=== PATIENT | female | born 1995 | race Caucasian/White ===

== ENCOUNTER → 2023-08-01 08:07 | Outpatient (CLI) | payer OTHER, SELFPAY ==
--- NOTE | ~2023-08-01 | US_ITS ---
Pelvic ultrasound. Clinical History: First trimester , Saturdays and viability, amenorrhea Technique: Realtime transabdominal and transvaginal scanning of the pelvis was performed. Color flow Doppler and Doppler spectral analysis were performed. Findings: The uterus is anteverted, and contains an intrauterine gestation. [place]-rump length of 1.5 cm corresponds to an estimated gestational age of 7 weeks 6 days. heart rate is 155 bpm.. The right ovary measures 2.9 x 3.1 x 2.3 cm. No significant right ovarian or adnexal mass is seen. The left ovary is not visualized. No significant left ovarian or adnexal mass is seen. There is no evidence of free fluid in the cul de sac. Impression: Live intrauterine gestation with estimated gestational age of 7 weeks 6 days. heart rate is 155 bpm. Sonographic ALTON is 03/13/2024 Reviewed, dictated and finalized at [facility]. ER [employer] Impression: Live intrauterine gestation with estimated gestational age of 7 weeks 6 days. F etal heart rate is 155 bpm. Sonographic AL[facility] is 03/13/2024
== END ==
PROVIDERS: PCP Family Medicine; Visit Provider Student in an Organized Health Care Education/Training Program
DX: Z34.91 Encounter for supervision of normal pregnancy, unspecified, first trimester (principal); Z3A.01 Less than 8 weeks gestation of pregnancy
CPT/HCPCS: 76801

== ENCOUNTER 2024-02-28 09:15 | Inpatient (IN) | payer OTHER, SELFPAY ==
[2024-02-28] VITALS (23 sets, daily range): BP systolic 96–141; BP diastolic 53–77; PULSE 89–113; RESP 16–18; TEMP 36.4–37.1; O2SAT 97; BMI 27.3
[2024-02-28 10:11] LABS: Basophils Percent Auto 0.3 % (0.2-1.2); Eosinophils Percent Auto 0.2 % (0-4.4); Hematocrit 35.2 % (37.0-47.0); Hemoglobin 11.6 g/dL (12.0-15.0); Immature Granulocyte Absolute 0.08 K/mm3 (0.00-0.031); Immature Granulocyte Percent A 0.6 % (0-0.5); Lymphocytes Percent Auto 12.6 % (18.3-44.2); Mean Corpuscular Hemoglobin 28.9 pg (26-34); Mean Corpuscular Volume 87.8 fl (80-100); Mean Platelet Volume 10.8 fl (7.4-10.4); Monocytes Absolute Auto 0.7 K/mm3 (0.1-0.6); Monocytes Percent Auto 5.6 % (2.6-8.5); Neutrophils Absolute Auto 10.2 K/mm3 (1.3-6.7); Neutrophils Percent Auto 80.7 % (45.5-73.1); Platelet Count Result 294 k/mm3 (150-375); Red Blood Count 4.01 M/mm3 (4.2-5.4); Red Cell Distribution Width 13.5 % (11.5-14.5); White Blood Count 12.7 K/mm3 (4.5-10.0)
--- NOTE | 2024-02-28 10:15 | LDADM ---
This patient, Cherrie Yun, was admitted to Labor/Delivery/Recovery 106 on 02/28/24 at 09:15. Plans for labor, pain management and were discussed with patient. Patient/family oriented to hospital policies and general routines including ID bracelet, bed and alarms, visiting hours, pain management, procedures, bathroom and other care routines, personal items, smoking policy, room service/diet and guest tray routines, infant security routines, and visiting hours. Patient/Family are encouraged to report perceived risks to care and to ask questions if they do not understand what they are told or what they should do. See OBIX for further documentation.
[2024-02-28 10:41] LABS: OBXCEM ROM Plus Positive
--- NOTE | 2024-02-28 11:10 | PM.IMHP ---
H&P: HPI History of Present Illness Date/Time: 02/28/24 11:10 Chief Complaint: Leaking Narrative: 28 y/o G1 at 38 weeks presented with c/o LOF clear at 0700. Cervix forebag, confirmed ROM plus. PNC uncomplicated. GBS neg. Review of Systems Review of Systems: All systems reviewed & are unremarkable except as noted in HPI and below Constitutional: Constitutional: Reports no additional constitutional complaints and Denies headache(s) Eyes: Eyes: Denies spots in vision ENT: Reports system reviewed and no additional complaints, except as documented and Denies headache(s) Cardiovascular: Cardiovascular: Denies chest pain and Denies dyspnea Respiratory: Respiratory: Denies dyspnea Gastrointestinal: Gastrointestinal: Reports no additional gastrointestinal complaints Genitourinary: Genitourinary: Reports amenorrhea Musculoskeletal: Musculoskeletal: Reports no additional musculoskeletal complaints Integumentary/Breasts: Skin/Breast: Denies breast mass and Denies rash Neurologic: Denies headache(s) Psychiatric: Psychiatric: Reports no additional psychiatric complaints [facility] Past Medical History Medical History Suppression of menses Surgical History Surgical History H/O knee surgery Family History Family History Grandparent Diabetes mellitus Mother Hypertension Diabetes mellitus Social History Social History Smoking status: Never smoker Alcohol intake: current Alcohol use details: RARELY Substance use: never Substance use type: does not use Do You Feel Safe in your Home?: Yes Lack of Transportation: No Lack of Food: Never True Current Housing: I Have Housing Concerned About Future Housing: No Difficulty Paying Gas/Electric Bills: No Difficulty Paying for Meds: No Currently Unemployed: No Education: Master's Degree or Higher Difficulty w/ Childcare or Family Care: No Gender identity (if verbalized by the patient): Female Spiritual care concerns: No Agree to blood products: Yes Meds Home Medications and Allergies Home Medications Medication Instructions Recorded Confirmed Type vits no.126-ferrous fum 1 tablet PO DAILY 07/28/23 02/23/24 History 28 mg iron-folic acid 800 mcg tablet (Classic ) Allergies Allergy/AdvReac Type Severity Reaction Status Date / Time No Known Allergies Allergy Verified 02/28/24 10:11 Vital Signs Vital Signs - 24 hr 02/28/24 09:36 02/28/24 09:45 02/28/24 10:00 Temperature 98.7 F Pulse Rate 96 108 H 100 Blood Pressure 141/74 H 114/72 120/67 Oxygen Delivery 02/28/24 10:13 Temperature Pulse Rate Blood Pressure Oxygen Delivery Room Air Exam Const: General: no acute distress Eyes: General: appearance normal, both eyes and all related structures Resp: Effort & Inspection: normal respiratory effort Cardio: Rate: regular rate GI: Other: Gravid no fundal tenderness no right upper quadrant pain Skin: General skin exam: no rashes or lesions noted Neuro: Cognition (Neuro): normal cognition Extrem: General: normal to inspection Psych: Mental Status: mental status grossly normal H&P: Results Labs Labs: Short CBC 02/28/24 Range/Units 10:05 WBC 12.7 H (4.5-10.0) K/mm3 Hgb 11.6 L (12.0-15.0) g/dL Hct 35.2 L (37.0-47.0) % Plt Count 294 (150-375) k/mm3 Assessment and Plan Assessment and plan (1) Spontaneous rupture of membranes: Status: Acute Assessment and Plan: Admit Labor Continue expectant management.
[2024-02-28 11:13] LABS: HIV 1/2 Ab P24 Ag Result Negative (Negative)
--- NOTE | 2024-02-28 11:21 | PM.OBPNVD ---
OB - PN: Subj Subjective Date/time seen: 02/28/24 11:21 Interval history: cat 1, forebag, AROM clear, /-2. OB - PN: Obj Data Labs 02/28/24 10:05 Labs: Laboratory Results - last 24 hr 02/28/24 02/28/24 09:30 10:05 WBC 12.7 H RBC 4.01 L Hgb 11.6 L Hct 35.2 L MCV 87.8 MCH 28.9 MCHC 33.0 RDW 13.5 Plt Count 294 MPV 10.8 H Immature Gran % (Auto) 0.6 H Neut % (Auto) 80.7 H Lymph % (Auto) 12.6 L [place] % (Auto) 5.6 Eos % (Auto) 0.2 Baso % (Auto) 0.3 Lymph # (Auto) 1.60 [place] # (Auto) 0.7 H Eos # (Auto) 0.0 Baso # (Auto) 0.0 Abs Immat Gran (auto) 0.08 H Absolute Neuts (auto) 10.2 H Absolute Nucleated RBC 0.000 Nucleated RBC % 0.0 Membranes Rupture Rom plus positive HIV 1&2 Ab/P24 Ag 4thGn Negative Blood Type O Positive Antibody Screen Negative OB - PN A/P Time Spent With Patient Time: Total time spent is greater than 50% in coordination of care (as documented) at patient's floor/unit and/or counseling patient:
[2024-02-28 11:47] LABS: Rapid Plasma Reagin Non-Reactive (NonReactive)
[2024-02-28] MEDS: fentaNYL CITRATE INJ (*CRX) 100 MCG/2 ML VIAL IV PUSH (13:44)
--- NOTE | 2024-02-28 14:02 | PM.OBPRVD ---
OB - Vaginal Delivery Note Procedure Delivery date: 02/28/24 Induction method: None Delivery monitor: External FHT Route of delivery: Episiotomy description: None Laceration Description: Periurethral and Perineal - 2nd Degree Delivery repair: vicryl (3.0 vicryl) Specimen: No Quantitative Blood Loss (ml): 200 Anesthesia type: Local Disposition: Floor Complications: No immediate complications Narrative: She was admitted after confirmation of SROM and labor. She did have a forebag which was ruptured. She progressed rapidly to active labor and complete. She delivered a male . Nose and mouth suctioned at perineum. The infant was delivered atraumaticly and vigorously crying and placed on maternal abdomen. Delayed cord clamping for 45 seconds. Pitocin started. Placenta delivered spontaneously and intact. She sustained a periurethral laceration. Mc[place] placed to better assess laceration area. Hemostasis was obtained with pressure at area, no suture needed at site. She sustained a second degree laceration repaired with 3.0 vicryl. Baby Date of : 02/28/24 Time of : 13:18 Gestational Age by Date: 38 Infant gender: Male presentation: vertex position: Right Occiput Anterior Placenta delivery description: Spontaneous Cord Vessel Description: 3 Vessels and Delayed Cord Clamping score one minute: 9 score five minutes: 9
[2024-02-28] MEDS: ACETAMINOPHEN 325 MG TABLET 650 MG PO (15:35)
[2024-02-28] MEDS: WITCH HAZEL 40 PADS 1 PAD TOPICAL (15:35)
[2024-02-28] MEDS: BENZOCAINE 20% AER SPR (*SP) 56 GM CAN 1 SPRAY TOPICAL (15:35)
--- NOTE | 2024-02-28 18:24 | OBPPTRN ---
1653-Patient transferred to post room #283 via wheelchair. Support person present. Oriented to unit, room, information board, rooming in, admission packet and security measures. Patient verbalizes understanding.
[2024-02-28] MEDS: IBUPROFEN 600 MG TABLET PO (20:07)
[2024-02-29] MEDS: IBUPROFEN 600 MG TABLET PO ×2 (03:18→15:45)
[2024-02-29 03:30] VITALS: BP 98/62; PULSE 75; RESP 18; TEMP 36.6
[2024-02-29 04:21] LABS: Hematocrit 30.5 % (37.0-47.0); Hemoglobin 9.6 g/dL (12.0-15.0)
--- NOTE | 2024-02-29 06:42 | P.PNOB_ITS ---
OB - PN: Subj Subjective Date/time seen: 02/29/24 06:42 Interval history: cat 1, forebag, AROM clear, /-2. Patient comments: pain well controlled, tolerating diet and other (Decreasing lochia.) baby status: doing well and nursing well OB - PN: Obj Data Labs 02/29/24 03:24 Labs: Laboratory Results - last 24 hr 02/28/24 02/28/24 02/29/24 09:30 10:05 03:24 WBC 12.7 H RBC 4.01 L Hgb 11.6 L 9.6 L Hct 35.2 L 30.5 L MCV 87.8 MCH 28.9 MCHC 33.0 RDW 13.5 Plt Count 294 MPV 10.8 H Immature Gran % (Auto) 0.6 H Neut % (Auto) 80.7 H Lymph % (Auto) 12.6 L [place] % (Auto) 5.6 Eos % (Auto) 0.2 Baso % (Auto) 0.3 Lymph # (Auto) 1.60 [place] # (Auto) 0.7 H Eos # (Auto) 0.0 Baso # (Auto) 0.0 Abs Immat Gran (auto) 0.08 H Absolute Neuts (auto) 10.2 H Absolute Nucleated RBC 0.000 Nucleated RBC % 0.0 Membranes Rupture Rom plus positive RPR Non-reactive HIV 1&2 Ab/P24 Ag 4thGn Negative Blood Type O Positive Antibody Screen Negative OB - PN A/P Plan day: 1 Plan: routine care Comments: Patient doing well. Time Spent With Patient Time: Total time spent is greater than 50% in coordination of care (as documented) at patient's floor/unit and/or counseling patient: Exam Psych: Affect: normal affect Other: Abd: fundus firm below umbilicus, nontender Perineum: healing Ext: nontender
--- NOTE | 2024-02-29 06:43 | PM.OBDSVD ---
DS: Admitting Diagnosis Discharge Date 03/01/24 Admitting Diagnosis Labor DS: Discharge Diagnosis Discharge Diagnosis (1) Delivery normal: Code(s): O80 - Encounter for full-term uncomplicated delivery Status: Acute OB - DS: Summary Hospital Course Hospital Course: She was admitted in active labor. She had an uncomplicated vaginal delivery. She did well . No urinary issue. Lochia decreased. Baby was doing well. She was discharged to home on day 2. OB Procedures : Ultrasound OB Procedures Intrapartum: Spontaneous Vag Delivery OB Procedures: : None Peripartum Data Delivery Method: Natural Vaginal Laceration Description: Periurethral and Perineal - 2nd Degree Episiotomy description: None complications: none Status at Discharge Functional status at discharge: independent ambulation Time Spent with Patient Time attestation: Total time spent providing and/or coordinating discharge services: Exam Const: General: cooperative Orientation/consciousness: oriented to person, oriented to place and oriented to time HENMT: Face/Nose/Sinus: Normal external nose present Eyes: General: appearance normal, both eyes and all related structures Resp: Effort & Inspection: normal respiratory effort GI: Inspection: normal to inspection Skin: General skin exam: normal color Neuro: General: oriented to person, oriented to place and oriented to time Extrem: General: normal to inspection and no calf tenderness Psych: Appearance: grossly normal DS: Data Data Completed and Pending Labs on day of discharge: Labs from last 24 hours 02/29/24 02/28/24 02/28/24 03:24 10:05 09:30 WBC 12.7 H RBC 4.01 L Hgb 9.6 L 11.6 L Hct 30.5 L 35.2 L MCV 87.8 MCH 28.9 MCHC 33.0 RDW 13.5 Plt Count 294 MPV 10.8 H Immature Gran % (Auto) 0.6 H Neut % (Auto) 80.7 H Lymph % (Auto) 12.6 L [place] % (Auto) 5.6 Eos % (Auto) 0.2 Baso % (Auto) 0.3 Lymph # (Auto) 1.60 [place] # (Auto) 0.7 H Eos # (Auto) 0.0 Baso # (Auto) 0.0 Abs Immat Gran (auto) 0.08 H Absolute Neuts (auto) 10.2 H Absolute Nucleated RBC 0.000 Nucleated RBC % 0.0 Membranes Rupture Rom plus positive RPR Non-reactive HIV 1&2 Ab/P24 Ag 4thGn Negative Blood Type O Positive Antibody Screen Negative Discharge Plan Discharge Attending physician on discharge: Sean Olson Discharging Clinician: Barrett Maldonado Patient Disposition: Home, Self-Care Activity: may shower, no straining and pelvic rest Diet: regular Discharge Instructions: Education: Mom and Baby Guide Given to: Mother Follow-Up: Call your delivering provider's office for an appointment to be seen in: 4- 6 Weeks Mom and baby should come to the [facility] for the follow-up appointment. Appointment Date/Time: March 02, 2024 at 11:00 am What to expect at your follow-up visit: Blood Pressure Check Physical Assessment Call [phone] if you are unable to keep your appointment time. BREAST CARE: * Wear a snug supportive bra. * For engorgement discomfort: Breast Feeding: * Apply warm moist washcloths * Express milk as needed to relieve engorgement * Wear loose clothing Bottle Feeding: * May apply ice packs * For sore nipples: * Identify correct latch-on * Apply warm moist washcloths before and after nursing * Air dry nipples after nursing * May apply Lansinoh cream to nipples PERINEAL CARE: * Until bleeding stops, use your camryn bottle after urinating * Change your pad frequently throughout the day * You may take sitz baths several times a day (fill your bathtub with warm water and soak for 20 minutes.) Do NOT bathe in the water * No tub baths until seen by your physician - You may shower ACTIVITY: * Rest as much as possible. * Do not
[2024-02-29 07:14] VITALS: BP 108/67; PULSE 91; RESP 20; TEMP 36.8; O2SAT 100
[2024-02-29] MEDS: POLYSACCHARIDE IRON COMPLEX 150 MG CAPSULE PO ×2 (09:29→17:15)
[2024-02-29] MEDS: MULTIVIT/MIN/PREN/FOL AC/IRON TABLET 1 TAB PO (09:29)
[2024-02-29] MEDS: DOCUSATE SODIUM 100 MG CAPSULE PO ×2 (09:29→17:15)
[2024-02-29] MEDS: ACETAMINOPHEN 325 MG TABLET 650 MG PO (10:00)
[2024-02-29 20:20] VITALS: BP 131/80; PULSE 100; RESP 18; TEMP 36.8; O2SAT 99
[2024-03-01 07:00] VITALS: BP 111/78; PULSE 83; RESP 16; TEMP 36.8; O2SAT 99
[2024-03-01] MEDS: IBUPROFEN 600 MG TABLET PO (07:15)
[2024-03-01] MEDS: DOCUSATE SODIUM 100 MG CAPSULE PO (07:15)
[2024-03-01] MEDS: MULTIVIT/MIN/PREN/FOL AC/IRON TABLET 1 TAB PO (07:15)
[2024-03-01] MEDS: POLYSACCHARIDE IRON COMPLEX 150 MG CAPSULE PO (07:15)
--- NOTE | 2024-03-01 10:45 | PC.NURSE ---
Patient viewed the discharge video Mother & Baby Care, The First Two Weeks . Patient was given the opportunity and encouraged to ask questions. Patient verbalized understanding of information shared and has been given the mother/baby guide for home reference.
[2024-03-02 11:34] VITALS: BP 106/64; PULSE 90; RESP 18; TEMP 36.9; O2SAT 100
== END 2024-03-01 12:00 | disposition home or self-care (01) | DRG 807 ==
LOC: ANHLDR 15:21 → ANHOB2 02-29 06:46 → ANHLDR 03-03 11:05
PROVIDERS: Admitting Provider Obstetrics & Gynecology; PCP Family Medicine; Visit Provider Obstetrics & Gynecology
DX: O70.1 Second degree perineal laceration during delivery (principal); Z37.0 Single live birth; Z3A.38 38 weeks gestation of pregnancy; O71.82 Other specified trauma to perineum and vulva
CPT/HCPCS: 36415; 84112; 85014; 85018; 85025; 86592; 86703; 86850; 86900; 86901; A9270; G0432; J3010

== ENCOUNTER 2025-03-01 15:29 | Outpatient (CLI) | payer OTHER, SELFPAY ==
--- NOTE | ~2025-03-01 | US_ITS ---
EXAMINATION: US OB <= 14 weeks fetus DATE: 03/01/2025 15:48 INDICATION: Amenorrhea. Suspected first trimester . TECHNIQUE: Real-time pelvic ultrasound utilizing both a transvaginal and transabdominal probe was performed. The interpreting radiologist was not present for the study. COMPARISON: None. FINDINGS: The uterus measures 11.2 x 7.4 x 4.2 cm. There is an intrauterine gestational sac. A yolk sac and pole are identified. The crown rump length measures 1.4 cm, which correlates with an estimated gestational age of 7 weeks and 4 days. heart motion is identified measuring 155 beats per minute (bpm) by M-mode Doppler. 1.6 x 1.1 x 0.4 similar anechoic subchronic hematoma along the deep margin of the gestational sac. The right ovary is not visualized The left ovary measures 2.8 x 2.6 x 1.3 with internal vascular flow on Doppler imaging. There is no free fluid in the pelvis. IMPRESSION: 1. Single living fetus with heart rate of 155 bpm. 2. Gestational age by ultrasound of 7 weeks 4 day(s) +/- 5 day(s) with ultrasound estimated date of delivery ([facility]) of 10/14/2025. 3. Small subchorionic hematoma. Reviewed, dictated and finalized at location A. IMPRESSION: 1. Single living fetus with heart rate of 155 bpm. 2. Gestational age by ultrasound of 7 weeks 4 day(s) +/- 5 day(s) with ultraso und estimated date of delivery (AL[facility]) of 10/14/2025. 3. Small subchorionic hematoma.
== END 2025-03-01 15:30 | disposition home or self-care (01) ==
LOC: GOSHIMG 15:29
PROVIDERS: PCP Student in an Organized Health Care Education/Training Program; Visit Provider Student in an Organized Health Care Education/Training Program
DX: N91.2 Amenorrhea, unspecified (principal); Z3A.01 Less than 8 weeks gestation of pregnancy
CPT/HCPCS: 76801